=== PATIENT | female | born 1975 | race Two or more races ===

== ENCOUNTER 2025-02-21 17:29 | Emergency (ER) | payer MEDICAID, SELFPAY ==
[~2025-02-21] VITALS: Ht 172.7 cm; Wt 73.0 kg
--- NOTE | 2025-02-21 17:48 | ED.PDOC ---
HPI (NEURO) HPI Comments 49y F who presents to the ED via EMS for chief complaint of dizziness and generalized weakness. Pt states she has been having symptoms for approx 30 minutes and called EMS. EMS arrived on scene and pt had noted stable vitals but noted pt had difficulty getting up and getting into EMS gurney. EMS noted pt was having nausea with associated vomiting episode prior to EMS arrival and pt was given 4 mg Zofran. Pt in the ED, states she is having tightness in her chest with associated shortness of breath. Pt in the ED, notes she is having personal stressors that are exacerbating her symptoms. Pt otherwise denies any other symptoms at this time. Chief Complaint: Dizziness Time Seen by MD: 17:43 Reviewed Notes: Nurses Notes, Medications, Allergies Information Source: Patient, Emergency Med Personnel Mode of Arrival: EMS Brought in by: EMS Severity: Moderate Dizziness/Weakness Severity: Does not affect activitie Headache Severity: None Timing: Minutes Duration: Since onset Prehospital treatment: Other (4 mg zofran) Onset: At rest Circumstances: Spontaneous Symptoms: Weakness History of: DM, Hypertension, Cancer Modifying factors: Nothing Associated Signs and Symptoms: Weakness Past Medical History PAST MEDICAL HISTORY: Cancer, DM, High Lipids, HTN, Thyroid Surgical History: Appendectomy, Cholecystectomy, [employer] History: Denies all [employer] Hx Family History Family History: Family hx of Cancer Social History Smoker: Cigarettes Alcohol: Denies ETOH Use Drugs: Marijuana Lives In: Home Constitutional: reports: weakness; denies: chills, diaphoresis, fatigue, fever, malaise, sweats, others EENTM: denies: blurred vision, double vision, ear bleeding, ear discharge, ear drainage, ear pain, ear ringing, eye pain, eye redness, hearing loss, mouth pain, mouth swelling, nasal discharge, nose bleeding, nose congestion, nose pain, photophobia, tearing, throat pain, throat swelling, voice changes, others Respiratory: denies: cough, hemoptysis, orthopnea, SOB at rest, shortness of breath, SOB with excertion, stridor, wheezing, others Cardiovascular: denies: chest pain, dizzy spells, diaphoresis, Dyspnea on exertion, edema, irregular heart beat, left arm pain, lightheadedness, palpitations, PND, syncope, others Gastrointestinal: denies: abdomen distended, abdominal pain, blood streaked bowels, constipated, diarrhea, dysphagia, difficulty swallowing, hematemesis, melena, nausea, poor appetite, poor fluid intake, rectal bleeding, rectal pain, vomiting, others Genitourinary: denies: abnormal vagina bleeding, burning, dyspareunia, dysuria, flank pain, frequency, hematuria, incontinence, pain, , vagina discharge, urgency, others Neurological: reports: dizziness; denies: fainting, headache, left sided numbness, left sided weakness, numbness, paresthesia, pre-existing deficit, right sided numbness, right sided weakness, seizure, speech problems, tingling, tremors, weakness, others Musculoskeletal: denies: back pain, gout, joint pain, joint swelling, muscle pain, muscle stiffness, neck pain, others Integumetry: denies: bruises, change in color, change in hair/nails, dryness, laceration, lesions, lumps, rash, wounds, others Allergic/Immunocompromised: denies: Difficulty Healing, Frequent Infections, Hives, Itching, others Hematologic/Lymphatic: denies: anemia, blood clots, easy bleeding, easy bruising, swollen glands, others Endocrine: denies: excessive hunger, excessive sweating, excessive thirst, excessive urination, flushing, intolerance to cold, intolerance to heat, unexplained weight gain, unexplained weight loss, others Psychiatric: denies: anxiety, bipolar disorder, depression, hopeless, panic disorder, schizophrenia, sleepless, suicidal, others All Other Systems: Reviewed and Negative Physical Exam General Appearance: No Apparent Distress HEENT: Normal ENT Inspection, Pharynx Normal, TMs Normal Neck: Full Range of Motion, Non-Tender, Normal, Normal Inspection Respiratory: Chest Non-Tender, Lungs Clear, No Accessory Muscle Use, No Respiratory Distress, Normal Breath Sounds Cardiovascular: No Edema, No JVD, No Murmur, No Gallop, Normal Peripheral Pulses, Regular Rate/Rhythm Breast Exam: Deferred Gastrointestinal: No Organomegaly, Non Tender, No Pulsatile Mass, Normal Bowel Sounds, Soft Genitalia: Deferred Pelvic: Deferred Rectal: Deferred Extremities: No calf tenderness, Normal capillary refill, Normal inspection, Normal range of motion, Non-tender, No pedal edema Musculoskeletal : Apperance: Normal Neurologic: Alert, pattern checker II-XII nml as Tested, No Motor Deficits, Normal Affect, Normal Mood, No Sensory Deficits Cerebellar Function: Normal Reflexes: Normal Skin: Dry, Normal Color, Warm Lymphatic: No Adenopathy EKG EKG : Pulse Rate (adult): 71 [place]: Normal Cardiac Rhythm: NSR Block: None Hypertrophy: None ST: Normal Was a procedure done? Was a procedure done?: No Differential Diagnosis (SZ) Seizure: N/A General Weakness: Anemia, Dehydration, Dysrhythmia, Electrolyte imbalance, Vertigo: central, Vertigo: peripheral Headache: Migraine X-Ray, Labs, Meds, VS Vital Signs Date Time Temp Pulse Resp B/P (MAP) Pulse Ox O2 Delivery O2 Flow Rate FiO2 02/21/25 18:52 62 18 97 Room Air 02/21/25 18:52 98.4 62 18 114/88 (97) 97 98.4 02/21/25 17:47 71 02/21/25 17:40 71 02/21/25 17:37 98.2 91 16 115/83 98 98.2 Lab Test 02/21/25 18:36 02/21/25 17:48 Range/Units Troponin I High Sensitivity < 3 L < 3 L </=34 ng/L White Blood Count 8.9 4.4-10.8 10^3/uL Red Blood Count 4.52 4.0-5.20 10^6/uL Hemoglobin 14.4 12.2-16.2 g/dL Hematocrit 41.6 36.0-46.0 % Mean Corpuscular Volume 92.0 80.0-100.0 fL Mean Corpuscular Hemoglobin 31.8 28.0-32.0 pg Mean Corpuscular Hemoglobin Concent 34.5 32.0-36.0 g/dL Red Cell Distribution Width 13.6 11.8-14.3 % Platelet Count 180 140-450 10^3/uL Mean Platelet Volume 9.2 6.9-10.8 fL Neutrophils (%) (Auto) 66.1 37.0-80.0 % Lymphocytes (%) (Auto) 26.7 10.0-50.0 % Monocytes (%) (Auto) 5.7 0.0-12.0 % Eosinophils (%) (Auto) 1.2 0.0-7.0 % Basophils (%) (Auto) 0.3 0.0-2.0 % Neutrophils # (Auto) 5.9 1.6-8.6 10 ^3/uL Lymphocytes # (Auto) 2.4 0.4-5.4 10 ^3/uL Monocytes # (Auto) 0.5 0-1.3 10 ^3/uL Eosinophils # (Auto) 0.1 0-0.8 10 ^3/uL Basophils # (Auto) 0 0-0.2 10 ^3/uL Nucleated Red Blood Cells 0.0 % Sodium Level 141 136-145 mmol/L Potassium Level 4.0 3.5-5.1 mmol/L Chloride Level 107 98-107 mmol/L Carbon Dioxide Level 22 20-31 mmol/L Anion Gap 12 5-15 Blood Urea Nitrogen 20 9-23 mg/dL Creatinine 0.93 0.550-1.02 mg/dL Glomerular Filtration Rate Calc 75 >90 mL/min BUN/Creatinine Ratio 21.5 H 10.0-20.0 Serum Glucose 158 H 74-106 mg/dL Calcium Level 10.5 H 8.7-10.4 mg/dL Current Medications Medications (Trade) Dose Ordered Sig/Andrea Route Start Time Stop Time Status Last Admin Sodium Chloride 500 ml @ 500 mls/hr Q1H ONCE IV 02/21/25 17:45 02/21/25 18:44 DC 02/21/25 18:45 CHEST RADIOGRAPH IMPRESSION: No acute disease. The patient's CBC is within normal limits The chemistry panel is within normal limits The troponin level x2 is negative The patient is being discharged and will follow up with the primary care doctor The patient will return to the emergency department's the condition worsens. Images Reviewed?: Images reviewed and evaluated by me Time of 1ST Reevaluation: 21:11 Reevaluation 1ST: Improved Patient Education/Counseling: Diagnosis, Treatment, Prognosis, Need For Follow Up Family Education/Counseling: No Family Present Departure 1 Departure Time of Disposition: 21:11 Impression: Primary Impression: Generalized weakness Additional Impression: Dizziness Disposition: 01 HOME / SELF CARE / HOMELESS Condition: Fair Discharged With: Self Critical Care Note Critical Care Time?: No Stability Stability form required: No Heart Score Heart Score: Heart Score Response (Comments) Value History Slightly Suspicious 0 EKG Normal 0 Age 45-64 1 Risk Factors >3 or Hx ASHD 2 Troponin N/A 0 Total 3 I personally scribed for MERARY VARGAS MD ([email or web address]) on 02/21/25 at 17:47. Electronically submitted by [facility] ([facility] I personally scribed for MERARY VARGAS MD ([email or web address]) on 02/21/25 at 18:21. Electronically submitted by Aurora Solorio ([facility] MERARY VARGAS MD Feb 21, 2025 17:47
[2025-02-21 18:07] LABS: Hematocrit 41.6 % (36.0-46.0); Hemoglobin 14.4 g/dL (12.2-16.2); Mean Corpuscular Hemoglobin 31.8 pg (28.0-32.0); Mean Corpuscular Volume 92.0 fL (80.0-100.0); Nucleated Red Blood Cells % 0.0 %
--- NOTE | 2025-02-21 18:07 | DVH ---
CHEST RADIOGRAPH Indication: weakness Technique: Single frontal view of the chest was obtained COMPARISON: None FINDINGS: Lines and Tubes: None Lungs: Clear Pleura: No effusion. No pneumothorax. Cardiomediastinal contours: Unremarkable Bones: Unremarkable IMPRESSION: No acute disease.
[2025-02-21 18:16] LABS: Chloride 107 mmol/L (98-107); Potassium 4.0 mmol/L (3.5-5.1); Sodium 141 mmol/L (136-145)
[2025-02-21 18:17] LABS: Anion Gap 12 (5-15); Carbon Dioxide 22 mmol/L (20-31)
[2025-02-21 18:23] LABS: BUN/Creatinine Ratio 21.5 (10.0-20.0); Blood Urea Nitrogen 20 mg/dL (9-23)
[2025-02-21 18:39] LABS: Calcium 10.5 mg/dL (8.7-10.4); Glucose 158 mg/dL (74-106)
[2025-02-21] MEDS: SODIUM CHLORIDE 0.9% 500 ML IV ONE (18:45)
--- NOTE | 2025-02-21 19:01 | ECG ---
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
[2025-02-22] VITALS: BP 118/76; TEMP 98
[2025-02-22 02:33] VITALS: PULSE 64; RESP 18; O2SAT 99
== END 2025-02-22 | disposition home or self-care (01) ==
LOC: EDBD 17:29 → ER 17:29 → EDUNIT# 17:29 → ER 02-22
DX: R53.1 Weakness (principal); R42 Dizziness and giddiness; F17.210 Nicotine dependence, cigarettes, uncomplicated; F12.90 Cannabis use, unspecified, uncomplicated; I10 Essential (primary) hypertension; E11.9 Type 2 diabetes mellitus without complications; E78.5 Hyperlipidemia, unspecified; Z90.49 Acquired absence of other specified parts of digestive tract; Z98.890 Other specified postprocedural states; Z85.9 Personal history of malignant neoplasm, unspecified
CPT/HCPCS: 36415; 71045; 80048; 84484; 85025; 93005; 99285; J7040